=== PATIENT | female | born 1970 | race Native Hawaiian/Other Pacific Islander ===

== ENCOUNTER 2021-06-17 11:25 | Outpatient (CLI) | payer BC | END 2021-06-17 23:12 | disposition home or self-care (01) | LOC: CT 11:25 | PROVIDERS: ATTEND Internal Medicine | DX: R80.1 Persistent proteinuria, unspecified (principal); N28.1 Cyst of kidney, acquired | CPT/HCPCS: 36415; 82565; 84520; Q9963 ==

== ENCOUNTER 2021-09-15 11:08 | Emergency (ER) | payer BC ==
[~2021-09-15] VITALS: Ht 149.9 cm; Wt 61.2 kg
[2021-09-15 11:13] VITALS: TEMP 97.6
[2021-09-15 12:09] LABS: PLATELET COUNT 232 K/uL (152-353)
[2021-09-15 12:18] LABS: POTASSIUM 4.2 mmol/L (3.6-5.2)
[2021-09-15 13:07] VITALS: BP 110/74
== END 2021-09-15 13:33 | disposition home or self-care (01) ==
LOC: ED 11:08
PROVIDERS: Emergency Medicine
DX: R51.9 Headache, unspecified (principal); J06.9 Acute upper respiratory infection, unspecified; R11.0 Nausea; B34.9 Viral infection, unspecified; Z20.822 Contact with and (suspected) exposure to COVID-19
CPT/HCPCS: 36415; 80053; 81000; 83880; 85027; 87502; 87635; 87651; 96360; 96375; 99284; J0585; J1200; J1885; J2405; U0003